=== PATIENT | female | born 2000 | race Hispanic/Latino ===

== ENCOUNTER 2020-11-01 10:31 | Emergency (ER) | payer OTHER ==
[2020-11-01] MEDS ORDERED: Bupivacaine 0.5% 10 ML VIAL ONE (12:48)
== END 2020-11-01 13:12 | disposition home or self-care (01) ==
LOC: ERS 10:31
DX: S62.613A Displaced fracture of proximal phalanx of left middle finger, initial encounter for closed fracture (principal); I10 Essential (primary) hypertension; E05.90 Thyrotoxicosis, unspecified without thyrotoxic crisis or storm; W22.8XXA Striking against or struck by other objects, initial encounter
CPT/HCPCS: 28515; J3490

== ENCOUNTER 2022-08-21 11:46 | Emergency (ER) | payer OTHER ==
[2022-08-21 13:03] LABS: Pregnancy Test - Urine (BHCG) Negative (Negative); Pregu Control Background? CLEAR/WHITE (CLR/WHITE); Pregu Control Bar Appear? YES (CONTROL BAR); Specific Gravity 1.025 (1.002-1.036)
[2022-08-21 13:06] LABS: Bilirubin Negative (Negative); Blood, Urine Trace (Negative); Clarity Turbid (Clear); Glucose, Urine (Dipstick) Normal (Negative); Ketone, Urine Negative (Negative); Leukocyte 500 Leu/uL (Negative); Nitrite Negative (Negative); Protein, Urine (Dipstick) Negative (Neg-Trace); RBC/HPF 0-3 HPF (0-3); Specific Gravity, Urine 1.025 (1.002-1.036); Squamous Epithelial 21-50 HPF (0-3); Urobilinogen Normal mg/dL (Less than 2); WBC/HPF 21-50 HPF (0-3); pH, Urine 5.5 (5.0-9.0)
[2022-08-21 13:22] LABS: Bacteria/HPF 1+ HPF (None Seen)
== END 2022-08-21 14:24 | disposition home or self-care (01) ==
LOC: ERS 11:46
DX: B37.31 Acute candidiasis of vulva and vagina (principal); E05.90 Thyrotoxicosis, unspecified without thyrotoxic crisis or storm; I10 Essential (primary) hypertension; Z79.899 Other long term (current) drug therapy
CPT/HCPCS: 81003; 81015; 81025; 99283